=== PATIENT | female | born 1975 | race Caucasian/White ===

== ENCOUNTER 2016-09-02 14:03 | Emergency (ER) | payer OTHER ==
[2016-09-02 14:49] LABS: BASOPHIL 0.5 % (0-2); EOSINOPHIL 0.2 % (0-5); HCT 43.9 % (37.0-47.0); HGB 14.9 g/dl (12.5-16.0); LYMPHOCYTE 20.5 % (15-48); MCH 33.6 pg (25.0-31.0); MCHC 33.9 g/dL (32.0-36.0); MCV 99.1 fL (78.0-100.0); MONOCYTE 4.2 % (0-12); MPV 9.3 fL (6.0-9.5); NEUTROPHIL 74.6 % (41-80); PLT 208 K/uL (150-400); RBC 4.43 M/uL (4.20-5.40); RDW 12.7 % (11.5-14.0); WBC 9.8 K/uL (4.0-10.5)
[2016-09-02 14:54] LABS: INR 0.93 (0.9-1.2); PROTHROMBIN TIME 12.1 SECONDS (11.7-14.0)
[2016-09-02 14:56] LABS: D-DIMER 0.56 ug/mLFEU (0.00-0.41)
[2016-09-02 15:08] LABS: ALBUMIN 5.2 g/dL (3.5-5.0); BILIRUBIN - TOTAL 1.4 mg/dL (0.1-1.0); CREATININE 0.5 mg/dL (0.5-1.0); GLOBULIN (CALCULATION) 2.8 g/dL (2.2-4.2); POTASSIUM 3.9 mmol/L (3.5-5.1)
[2016-09-02 15:11] LABS: PRO-BNP 26 pg/mL (0-125); TROPONIN T < 0.010 ng/mL
== END 2016-09-02 17:57 | disposition home or self-care (01) ==
LOC: FER 14:03
PROVIDERS: Emergency Medicine
DX: K21.9 Gastro-esophageal reflux disease without esophagitis (principal); F32.9 Major depressive disorder, single episode, unspecified; E03.9 Hypothyroidism, unspecified; Z79.899 Other long term (current) drug therapy; Z88.0 Allergy status to penicillin; Z88.8 Allergy status to other drugs, medicaments and biological substances; Z88.2 Allergy status to sulfonamides
CPT/HCPCS: 36415; 71010; 71275; 80053; 83605; 83690; 83880; 84484; 85025; 85379; 85610; 93005; J2270; J2405; Q9967